=== PATIENT | female | born 1960 | race American Indian/Alaskan Native ===

== ENCOUNTER 2022-03-11 13:38 | Emergency (ER) | payer OTHER ==
[2022-03-11] MEDS ORDERED: ACETAMINOPHEN 500 MG TAB PO ONE (14:10)
[2022-03-11] MEDS ORDERED: cefTRIAXone/NS 1 GM/50 ML 1 GM/50 ML BAG IV ONE (14:10)
[2022-03-11] MEDS ORDERED: SODIUM CHLORIDE 0.9% 1000 ML 1,000 ML IV ONE (14:31)
[2022-03-11] MEDS ORDERED: IPRATROPIUM 0.02% NEBU 2.5 ML IH ONE (14:38)
[2022-03-11] MEDS ORDERED: ALBUTEROL 2.5 MG/3 ML NEBU IH ONE (14:38)
[2022-03-11] MEDS ORDERED: methylPREDNISolone Sod Succinate 125 MG/2 ML INJ IV ONE (14:38)
[2022-03-11] MEDS ORDERED: MAGNESIUM SULFATE 2 GM/50 ML BAG IV ONE (14:38)
--- NOTE | 2022-03-11 14:49 | XRay Report ---
CHEST 2 VIEWS INDICATION / CLINICAL INFORMATION: sob. COMPARISON: None available FINDINGS: SUPPORT DEVICES: None. HEART / MEDIASTINUM: No significant abnormality. LUNGS / PLEURA: Linear opacities in the left lower lobe. The remainder of the lungs is clear. No pneu mothorax. ADDITIONAL FINDINGS: No significant additional findings. IMPRESSION: 1. Linear opacities in the left lower lobe likely represent subsegmental atelectasis. The lungs are o therwise clear. Signer Name: Wilfrid Palacios MD Signed: 03/11/2022 2:45 PM Workstation Name: [id number]
--- NOTE | 2022-03-11 15:10 | Emergency Department Report ---
ED Shortness of Breath HPI - General Chief Complaint: Dyspnea/Respdistress Stated Complaint: ASTHMA Time Seen by Provider: 03/11/22 14:28 Source: patient Mode of arrival: Ambulatory Limitations: No Limitations - History of Present Illness Initial Comments: Patient is a 61-year-old female that comes to the emergency room with wheezing. She has a history of asthma. She is a current smoker. She did an inhaler and nebulizer treatment prior to arrival but her wheezing did not diminish. She was found to have a fever in triage. She states she did not even realize that she had a fever until we took her temperature. She denies chills. She denies any chest pain. On admission although patient was wheezing. She was in no acute distress. No accessory muscle use. She was talking in full sentences without difficulty. MD Complaint: shortness of breath, "asthma attack" -: Sudden, hour(s) Improves With: bronchodilators Worsens With: nothing Known History Of: COPD, asthma Context: allergen exposure Associated Symptoms: denies other symptoms, fever (Discovered on admission), cough (Nonpurulent) Treatments Prior to Arrival: bronchodilator - Related Data Home Oxygen Therapy: No Previous Rx's Medication Instructions Recorded Last Taken Type ALBUTEROL NEB's [Proventil 0.083% 2.5 mg IH TID PRN #1 box 03/11/22 Unknown Rx NEBS] Albuterol Mdi (or & Nicu Only) 2 puff IH QID PRN #1 inhalation 03/11/22 Unknown Rx [ProAir HFA Inhaler] Azithromycin [Zithromax Z-TRACE] 250 mg PO DAILY #6 tablet 03/11/22 Unknown Rx Cetirizine HCl [ZyrTEC] 10 mg PO DAILY #30 capsule 03/11/22 Unknown Rx Fluticasone [Flonase] 1 spray NS QDAY #1 bottle 03/11/22 Unknown Rx predniSONE [Deltasone] 20 mg PO DAILY #5 tablet 03/11/22 Unknown Rx Allergies Allergy/AdvReac Type Severity Reaction Status Date / Time No Known Allergies Allergy Unverified 11/30/13 18:15 ED Review of Systems ROS: Stated complaint: ASTHMA Other details as noted in HPI Comment: All other systems reviewed and negative ED Past Medical Hx - Past Medical History Previous Medical History?: Yes Hx Asthma: Yes - Surgical History Past Surgical History?: Yes Additional Surgical History: 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, Hysterectomy - Family History Family history: no significant - Social History Smoking Status: Current Every Day Smoker Substance Use Type: Alcohol, Prescribed - Medications Home Medications: Home Medications Medication Instructions Recorded Confirmed Last Taken Type ALBUTEROL NEB's [Proventil 0.083% 2.5 mg IH TID PRN #1 box 03/11/22 Unknown Rx NEBS] Albuterol Mdi (or & Nicu Only) 2 puff IH QID PRN #1 inhalation 03/11/22 Unknown Rx [ProAir HFA Inhaler] Azithromycin [Zithromax Z-TRACE] 250 mg PO DAILY #6 tablet 03/11/22 Unknown Rx Cetirizine HCl [ZyrTEC] 10 mg PO DAILY #30 capsule 03/11/22 Unknown Rx Fluticasone [Flonase] 1 spray NS QDAY #1 bottle 03/11/22 Unknown Rx predniSONE [Deltasone] 20 mg PO DAILY #5 tablet 03/11/22 Unknown Rx ED Physical Exam - General Limitations: No Limitations General appearance: alert, in no apparent distress - Head Head exam: Present: atraumatic, normocephalic - Eye Eye exam: Present: normal appearance - ENT ENT exam: Present: mucous membranes moist - Neck Neck exam: Present: normal inspection - Respiratory Respiratory exam: Present: normal lung sounds bilaterally, wheezes. Absent: respiratory distress - Cardiovascular Cardiovascular Exam: Present: regular rate, normal rhythm. Absent: systolic murmur, diastolic murmur, rubs, gallop - GI/Abdominal GI/Abdominal exam: Present: soft, normal bowel sounds - Extremities Exam Extremities exam: Present: normal inspection - Back Exam Back exam: Present: normal inspection - Neurological Exam Neurological exam: Present: alert, oriented X3 - Psychiatric Psychiatric exam: Present: normal affect, normal mood - Skin Skin exam: Present: warm, dry, intact, normal color. Absent: rash ED Course Vital Signs 03/11/22 13:59 Temperature 100.6 F H Pulse Rate 99 H Respiratory 20 Rate Blood Pressure 149/82 [Right] O2 Sat by Pulse 96 Oximetry ED Medical Decision Making - Lab Data Result diagrams: 03/11/22 14:54 03/11/22 14:54 - EKG Data EKG shows normal: sinus rhythm Rate: normal - EKG Data When compared to previous EKG there are: no significant change Interpretation: no acute changes - Radiology Data Radiology results: report reviewed See report - Medical Decision Making Labs 03/11/22 03/11/22 03/11/22 14:54 14:54 14:54 WBC 7.2 RBC 4.39 Hgb 13.6 Hct 41.0 MCV 93 MCH 31 MCHC 33 RDW 12.9 L Plt Count 256 Lymph % (Auto) 20.8 Casey % (Auto) 7.3 Eos % (Auto) 0.9 Baso % (Auto) 1.9 H Lymph # (Auto) 1.5 Casey # (Auto) 0.5 Eos # (Auto) 0.1 Baso # (Auto) 0.1 Seg Neutrophils % 69.1 Seg Neutrophils # 5.0 Sodium 141 Potassium 5.0 Chloride 101.6 Carbon Dioxide 24 Anion Gap 20 BUN 3 L Creatinine 0.5 L Estimated GFR > 60 BUN/Creatinine Ratio 6 Glucose 150 H Lactic Acid 2.10 H* Calcium 8.2 L Total Bilirubin 0.60 AST 32 ALT 19 Alkaline Phosphatase 127 Troponin T < 0.010 Total Protein 6.7 Albumin 4.2 Albumin/Globulin Ratio 1.7 Vital Signs 03/11/22 13:59 Temperature 100.6 F H Pulse Rate 99 H Respiratory 20 Rate Blood Pressure 149/82 [Right] O2 Sat by Pulse 96 Oximetry X-ray noted. Findings noted to be chronic EKG no acute process Labs noted. Lactate noted to be elevated: This is in the context of an asthma exacerbation today. Her WBC is normal. Patient is febrile. Patient did not realize that she was febrile so she came to the ER. Temperature down trended w hile here. Patient given normal saline, Rocephin, Solu-Medrol, DuoNeb and she reported feeling much better. She is walking around the ER without shortness of breath or chest pain. She is taking p.o. without difficulty. 1730 repeat lactic acid sent. Nurses asked to repeat vital signs prior to discharge. Patient being discharged home with discharge plan of care including diet, activity, medications and follow-up. She verbalizes understanding of plan of care - Differential Diagnosis Rule out pneumonia Critical care attestation.: If time is entered above; I have spent that time in minutes in the direct care of this critically ill patient, excluding procedure time. ED Disposition Clinical Impression: Current smoker Asthma with acute exacerbation Qualifiers: Asthma severity: mild Asthma persistence: intermittent Qualified Code(s): J45.21 - Mild intermittent asthma with (acute) exacerbation COPD (chronic obstructive pulmonary disease) Qualifiers: COPD type: COPD with acute exacerbation Qualified Code(s): J44.1 - Chronic obstructive pulmonary disease with (acute) exacerbation URI (upper respiratory infection) Qualifiers: URI type: unspecified URI Qualified Code(s): J06.9 - Acute upper respiratory infection, unspecified Disposition: HOME / SELF CARE / HOMELESS Is pt being admited?: No Does the pt Need Aspirin: No Condition: Stable Instructions: Asthma, Adult, Chronic Obstructive Pulmonary Disease (ED) Additional Instructions: Medications as ordered today Motrin or Tylenol for pain or fever Follow-up with PCP on Sunday for recheck. You need to make sure you are getting better. Referral below Diet and activity as Stay well-hydrated Avoid smoking Minimize allergen chin exposure, including pollen Prescriptions: predniSONE [Deltasone] 20 mg PO DAILY #5 tablet Fluticasone [Flonase] 1 spray NS QDAY #1 bottle Albuterol Mdi (or & Nicu Only) [ProAir HFA Inhaler] 2 puff IH QID PRN #1 inhalation PRN Reason: Shortness Of Breath ALBUTEROL NEB's [Proventil 0.083% NEBS] 2.5 mg IH TID PRN #1 box PRN Reason: Wheezing Azithromycin [Zithromax Z-TRACE] 250 mg PO DAILY #6 tablet Cetirizine HCl [ZyrTEC] 10 mg PO DAILY #30 capsule Referrals: MARY HERNANDEZ MD [Primary Care Provider] - 3-5 Days CLEMENCIA LOUIE MD [Staff Physician] - 3-5 Days Time of Disposition: 17:29
[2022-03-11 15:23] LABS: Basophils # (Auto) 0.1 K/mm3 (0.0-0.1); Basophils % (Auto) 1.9 % (0.0-1.8); Eosinophils # (Auto) 0.1 K/mm3 (0.0-0.4); Eosinophils % (Auto) 0.9 % (0.0-4.3); Hemoglobin 13.6 gm/dl (10.1-14.3); Lymphocytes # (Auto) 1.5 K/mm3 (1.2-5.4); Lymphocytes % (Auto) 20.8 % (13.4-35.0); Mean Corpuscular HGB Conc 33 % (30-34); Mean Corpuscular Volume 93 fl (79-97); Monocytes # (Auto) 0.5 K/mm3 (0.0-0.8); Monocytes % (Auto) 7.3 % (0.0-7.3); Platelet Count 256 K/mm3 (140-440); Red Blood Count 4.39 M/mm3 (3.65-5.03); Red Cell Distribution Width 12.9 % (13.2-15.2)
[2022-03-11 15:50] LABS: Alanine Aminotransferase 19 units/L (7-56); Albumin 4.2 g/dL (3.9-5); Blood Urea Nitrogen 3 mg/dL (7-17); Calcium 8.2 mg/dL (8.4-10.2); Hemolysis Index 162
[2022-03-11 16:12] LABS: BUN/Creatinine Ratio 6
[2022-03-11 17:29] LABS: Bilirubin,Urine NEG (Negative); Blood,Urine NEG (Negative); Color,Urine Yellow (Yellow); Protein,Urine <15 mg/dL mg/dL (Negative); RBC,Urine < 1.0 /HPF (0.0-6.0); WBC,Urine < 1.0 /HPF (0.0-6.0)
[2022-03-11 18:30] VITALS: BP 140/76
--- NOTE | 2022-03-13 13:31 | Electrocardiograph Report ---
[facility] Test Date: 2022-03-11 Test Time: 16:56:34 Pat Name: MARCO BOWEN Department: Room: Gender: F Freelance Photographer: KE : 1960 Requested By: DERICK GLASER Order Number: [id number] Reading MD: Gray Bolanos Measurements Intervals [place] Rate: 84 P: 58 WI: 126 QRS: 10 QRSD: 69 T: -3 QT: 386 QTc: 455 Interpretive Statements Sinus rhythm Probable left atrial enlargement Borderline T abnormalities, diffuse leads No previous ECG available for comparison Electronically Signed On 03-13-2022 13:31:38 EDT by Gray Bolanos
== END 2022-03-11 18:30 | disposition home or self-care (01) ==
LOC: ED 13:38
DX: J45.901 Unspecified asthma with (acute) exacerbation (principal); F17.200 Nicotine dependence, unspecified, uncomplicated
CPT/HCPCS: 36415; 71046; 80053; 81001; 82140; 84484; 85025; 93005; 96365; 96367; 96375; 99284; J0696; J2930; J3475; J7030